=== PATIENT | male | born 1975 | race Caucasian/White ===

== ENCOUNTER 2021-09-24 08:04 | Inpatient (IN) | payer BC, OTHER ==
[~2021-09-24] VITALS: Ht 170.2 cm; Wt 72.1 kg
--- NOTE | 2021-09-24 08:04 | NUR ---
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 BLOOD PRESSURE IS ELEVATED, DR FERNANDEZ IS AWARE. PT BREATHING IS EVEN AND UNLABORED. PT ATTACHED TO MONITOR. DR CRAWFORD AT BEDSIDE. WILL CONTINUE TO MONITOR.
--- NOTE | 2021-09-24 08:14 | NUR ---
BIB RA40 C/O CHEST PAIN X 6 HRS. PAIN RATED 10/10. AAOX4, BREATHING EVEN AND UNLABORED, PULSES 2+ BILATERALLY, SKIN IS WARM AND DRY. ASSISTED TO ER BED 9, COMFORT MEASURES IN PLACE.
[2021-09-24] MEDS ORDERED: NITROGLYCERIN PACKET 1 GM PACKET ONE (08:27)
[2021-09-24] MEDS ORDERED: NITROGLYCERIN PACKET 1 GM PACKET TD ONE (08:30)
--- NOTE | 2021-09-24 08:33 | NUR ---
X RAY AT BEDSIDE
[2021-09-24 08:38] LABS: BASOPHILS % (AUTO) 0.5 % (0.0-2.0); EOSINOPHILS % (AUTO) 0.7 % (0.0-6.0); HEMATOCRIT 48 % (39-51); HEMOGLOBIN 16.7 g/dL (13.5-17.5); LYMPHOCYTES # (AUTO) 1.6 K/uL (0.8-4.8); LYMPHOCYTES % (AUTO) 20.5 % (20.0-44.0); MEAN CORPUSCULAR HGB CONC 35 g/dl (31.0-36.0); MEAN CORPUSCULAR VOLUME 84 fL (80-96); MONOCYTES # (AUTO) 0.6 K/uL (0.1-1.30); MONOCYTES % (AUTO) 7.8 % (2.0-12.0); NEUTROPHILS # (AUTO) 5.6 K/uL (1.8-8.9); NEUTROPHILS % (AUTO) 70.5 % (43.0-81.0); PLATELET COUNT (AUTO) 284 K/uL (150-450); RED BLOOD CELL COUNT(AUTO) 5.72 MIL/uL (4.5-6.0)
--- NOTE | 2021-09-24 08:40 | NUR ---
X RAY AT BEDSIDE
[2021-09-24] MEDS ORDERED: MORPHINE SULFATE INJ 4 MG/ML DISP.SYRIN ONE (08:44)
[2021-09-24] MEDS ORDERED: IOHEXOL-350 100 ML VIAL IV ONE ×2 (08:51→10:33)
[2021-09-24] MEDS ORDERED: CT SWABBABLE VALVE TRANS SET 1 EA INFUS.SET MC ONE (08:51)
[2021-09-24] MEDS ORDERED: IV NS 0.9% 250 ML IV ONE ×2 (08:52→10:34)
--- NOTE | 2021-09-24 08:55 | NUR ---
THE PATIENT IS TAKEN TO CT VIA [facility]
--- NOTE | 2021-09-24 08:55 | NUR ---
PT TAKEN TO CT
[2021-09-24] MEDS ORDERED: MORPHINE SULFATE INJ 2 MG/ML DISP.SYRIN IV ONE (09:00)
--- NOTE | 2021-09-24 09:04 | NUR ---
PT BACK FROM CT
--- NOTE | 2021-09-24 09:08 | NUR ---
COVID SWAB DONE AND SENT TO LAB
--- NOTE | 2021-09-24 09:08 | NUR ---
REQUESTED A BED FROM NURSING SUP, ADVISED TO CALL BACK AFTER MEETING.
[2021-09-24 09:14] LABS: CALCIUM, SERUM 9.3 mg/dL (8.5-10.1); CARBON DIOXIDE 27 mmol/L (21-32); CHLORIDE 97 mmol/L (98-107); CREATININE 1.1 mg/dL (0.6-1.3); GLUCOSE 120 mg/dL (74-106); POTASSIUM 4.1 mmol/L (3.5-5.1); SODIUM SERUM 136 mmol/L (136-145)
--- NOTE | 2021-09-24 09:57 | NUR ---
CARDIOLOGY DR. PETE VALLADARES.
[2021-09-24] MEDS ORDERED: PANTOPRAZOLE 40 MG VIAL ONE (10:27)
[2021-09-24] MEDS ORDERED: PANTOPRAZOLE 40 MG VIAL IV ONE (10:30)
[2021-09-24 10:33] LABS: UREA NITROGEN, BLOOD 17 mg/dL (7-18)
[2021-09-24] MEDS ORDERED: NITROGLYCERIN 4.9 GM SPRAY ONE (10:55)
[2021-09-24] MEDS ORDERED: METOPROLOL TARTRATE INJ 5 MG/5 ML AMPUL IVP PRN (11:00)
[2021-09-24] MEDS ORDERED: NITROGLYCERIN 0.4 MG/TAB BOTTLE SL ONE (11:00)
[2021-09-24 11:02] LABS: ALBUMIN 4.1 g/dL (3.4-5.0); BILIRUBIN,DIRECT 0.2 mg/dL (0.0-0.2); BILIRUBIN,TOTAL 0.7 mg/dL (0.2-1.0); TOTAL PROTEIN, SERUM 8.9 g/dL (6.4-8.2)
[2021-09-24] MEDS ORDERED: NITROGLYCERIN 0.4 MG/TAB BOTTLE SL PRN (11:30)
[2021-09-24] MEDS ORDERED: MORPHINE SULFATE INJ 2 MG/ML DISP.SYRIN IV PRN (11:30)
[2021-09-24] MEDS ORDERED: ASPIRIN 81 MG TAB.CHEW PO SCH (12:00)
[2021-09-24] MEDS ORDERED: ATORVASTATIN 40 MG TABLET PO SCH (12:00)
[2021-09-24] MEDS ORDERED: CARVEDILOL 3.125 MG TABLET PO SCH (12:00)
--- NOTE | 2021-09-24 12:17 | NUR ---
PT AMBULATED TO RESTROOM AND RETURNED TO BED IN STABLE CONDITION.
[2021-09-24] MEDS ORDERED: ATORVASTATIN 40 MG TABLET ONE (12:36)
[2021-09-24] MEDS ORDERED: ASPIRIN 81 MG TAB.CHEW ONE (12:37)
[2021-09-24] MEDS ORDERED: CARVEDILOL 3.125 MG TABLET ONE (12:37)
--- NOTE | 2021-09-24 12:46 | NUR ---
Patient does not wish to proceed with medical care recommended by Dr. MG. Patient given information related to possible complications, up to and including , which could occur as a result of leaving the hospital at this time. Patient verbalizes understanding of risks involved due to leaving against medical advice. Patient has signed AMA form. PT ambulatory with a steady gait
[2021-09-24 12:50] VITALS: BP 60/171
[2021-09-24] MEDS ORDERED: METOPROLOL TARTRATE 25 MG TABLET PO SCH (17:00)
[2021-09-25] MEDS ORDERED: ASPIRIN 81 MG TAB.CHEW PO SCH (09:00)
== END 2021-09-24 12:46 | disposition left against medical advice (07) | DRG 303 ==
LOC: ER 08:10 → TRANSITION 11:46
PROVIDERS: ADMIT Legal Medicine; ATTEND Legal Medicine
DX: I25.110 Atherosclerotic heart disease of native coronary artery with unstable angina pectoris (principal); E78.5 Hyperlipidemia, unspecified; F17.210 Nicotine dependence, cigarettes, uncomplicated; I10 Essential (primary) hypertension; K80.20 Calculus of gallbladder without cholecystitis without obstruction; Z95.5 Presence of coronary angioplasty implant and graft; Z20.822 Contact with and (suspected) exposure to COVID-19
CPT/HCPCS: 36415; 71045-TC; 75574; 80048-TC; 80076-TC; 83690-TC; 84484-TC; 85025-TC; C9113; C9803; G0378; J2270; J7050; Q9967

== ENCOUNTER 2024-10-12 11:51 | Emergency (ER) | payer OTHER ==
[~2024-10-12] VITALS: Ht 182.9 cm; Wt 127.0 kg
[2024-10-12] MEDS ORDERED: FAMOTIDINE (20 MG) 20 MG TABLET ONE (12:46)
[2024-10-12] MEDS ORDERED: predniSONE 20 MG TABLET ONE (12:46)
[2024-10-12] MEDS: predniSONE 50 MG TABLET PO ONE (12:49)
[2024-10-12] MEDS: FAMOTIDINE (20 MG) 20 MG TABLET PO ONE (12:49)
[2024-10-12] MEDS ORDERED: PRED50TA PO (12:54)
[2024-10-12 13:09] VITALS: BP 165/101; TEMP 98.2; O2SAT 96
== END 2024-10-12 13:10 | disposition home or self-care (01) ==
LOC: ER 11:56
DX: T78.49XA Other allergy, initial encounter (principal); X58.XXXA Exposure to other specified factors, initial encounter; H05.89 Other disorders of orbit; I10 Essential (primary) hypertension; R09.81 Nasal congestion
CPT/HCPCS: 99283; J7512